=== PATIENT | female | born 1935 | race American Indian/Alaskan Native ===

== ENCOUNTER 2020-11-28 08:00 | Outpatient (CLI) | payer OTHER | END 2020-11-28 08:30 | disposition home or self-care (01) | LOC: PPH VACUNA 08:00 | PROVIDERS: ATTEND Emergency Medicine Pediatric Emergency Medicine | DX: Z23 Encounter for immunization (principal) ==

== ENCOUNTER 2021-12-18 10:24 | Outpatient (CLI) | payer OTHER | END 2021-12-18 10:29 | disposition home or self-care (01) | LOC: RAD 10:24 | PROVIDERS: ATTEND Orthopaedic Surgery | DX: M25.562 Pain in left knee (principal) ==

== ENCOUNTER 2022-02-21 12:10 | Outpatient (CLI) | payer OTHER | END 2022-02-21 12:21 | disposition home or self-care (01) | LOC: RAD 12:10 | PROVIDERS: ATTEND Orthopaedic Surgery | DX: M54.50 Low back pain, unspecified (principal) ==